=== PATIENT | female | born 1985 | race African-American/Black ===

== ENCOUNTER 2019-11-05 17:30 | Emergency (ER) | payer OTHER ==
[~2019-11-05] VITALS: Ht 149.9 cm; Wt 63.5 kg
[2019-11-05] MEDS ORDERED: MOBIC7.5 MG PO (18:02)
[2019-11-05] MEDS ORDERED: PREDNISONE 20 M20 MG PO (18:02)
[2019-11-05 18:35] VITALS: BP 152/97
== END 2019-11-05 18:38 | disposition home or self-care (01) ==
LOC: ER 17:30
DX: M25.542 Pain in joints of left hand (principal); M25.541 Pain in joints of right hand; I10 Essential (primary) hypertension; Z88.8 Allergy status to other drugs, medicaments and biological substances